=== PATIENT | female | born 1985 | race Caucasian/White ===

== ENCOUNTER 2016-08-12 19:28 | Emergency (ER) | payer BC ==
--- NOTE | 2016-08-12 20:23 | ED.PDOC ---
History of Present Illness - General Chief Complaint: Abdominal Pain Stated Complaint: right abd pain radiates to back/chest, diarrhea Time Seen by Provider: 08/12/16 19:33 Information Source: patient, RN notes reviewed, Vital Signs reviewed Exam Limitations: no limitations - History of Present Illness Initial Comments: Patient started with RUQ pain yesterday that has worsened today. + nausea & diarrhea. Pain radiated to her back and chest. + chills. Pain is both crampy and burning. She has had similar episodes in the past but last evaluated while 5 years ago. GB sonogram was negative at that time. Abdominal Pain Onset Location: RUQ, epigastric Pain Radiation: chest, back Quality: moderate, burning, cramping Timing/Duration: 24 hours Improving Factors: nothing Worsening Factors: nothing Associated Symptoms: back pain - R mid back, chest pain, diarrhea, fever/chills , nausea/vomiting Review of Systems - Review of Systems Constitutional: States: chills Respiratory: States: no symptoms reported Cardiology: States: chest pain Gastrointestinal/Abdominal: States: see HPI, abdominal pain, diarrhea, nausea Genitourinary: States: no symptoms reported Musculoskeletal: States: back pain Skin: States: no symptoms reported Neurological: States: no symptoms reported. Denies: headache Past Medical History (General) - Patient Medical History Hx Seizures: No Hx Stroke: No Hx Dementia: No Hx Asthma: No Hx of COPD: No Hx Cardiac Disorders: No Hx Congestive Heart Failure: No Hx Pacemaker: No Hx Hypertension: No Hx Thyroid Disease: No Hx Diabetes: No Hx Gastroesophageal Reflux: No Hx Renal Disease: No Hx Cancer: No Hx of HIV: No Hx Hepatitis C: No Hx MRSA: No - Vaccination History Hx Tetanus, Diphtheria Vaccination: No Hx Influenza Vaccination: Yes Hx Pneumococcal Vaccination: No Immunizations Up to Date: No - Social History Hx Tobacco Use: No Hx Chewing Tobacco Use: No Hx Alcohol Use: No Hx Substance Use: No Hx Substance Use Treatment: No Hx Depression: No Feels Threatened In Home Enviroment: No Feels Threatened In a Relationship: No Hx Physical Abuse: No Hx Emotional Abuse: No Hx Suspected Abuse: No - Female History Patient is a Female of Child Bearing Age (10 -59 yrs old): Yes Hx Last Menstrual Period: 08/05/16 Patient : No Family Medical History - Family History Mother Living Status: Still Living Hx Family Hypertension: Yes Hx Family Cancer: Yes Hx Family;Other: kidney disease, thyroid disease Physical Exam - Physical Exam General Appearance: Alert, Comfortable, No apparent distress, Obese, Well Developed, Well Groomed, Well Hydrated, Well Nourished Neck: non-tender, full range of motion, supple, normal inspection Respiratory: chest non-tender, lungs clear, normal breath sounds, no respiratory distress, no accessory muscle use Cardiovascular/Chest: regular rate, rhythm, no edema, no gallop, no JVD, no murmur Gastrointestinal/Abdominal: normal bowel sounds, soft, tenderness - RUQ and epigastric with + Serrano's sign Back Exam: CVA tenderness (R) Extremity: normal range of motion, normal inspection Neurologic: alert, normal mood/affect, oriented x 3 Skin Exam: normal color, warm/dry Progress - Progress Progress: 08/12/16 21:04 Labs are normal. Exam is suspect for gallbladder issue. Unfortunately 08/12/16 21:28 Unfortunately, unable to get GB sonogram tonight. Will order as outpatient and get done tomorrow morning. Discussed with patient and [employer] who are both agreeable with plan. Departure - Departure Clinical Impression: Abdominal pain, RUQ (right upper quadrant) Time of Disposition: 21:30 Disposition: Discharge to Home or Self Care Condition: Good Departure Forms: ED Discharge - Pt. Copy, Patient Portal Self Enrollment Instructions: DI for Abdominal Pain-Adult Diet: full liquid diet - Until after sonogram tomorrow Activity: increase activity as tolerated
[2016-08-12] MEDS: HYDROmorphone HCL INJ 2 MG/ML VIAL IV ONE (20:48)
[2016-08-12] MEDS: ONDANSETRON INJ 4 MG/2 ML VIAL IV ONE (20:49)
[2016-08-12 22:03] VITALS: BP 132/72; TEMP 99; O2SAT 97
--- NOTE | 2016-08-13 09:39 | US ---
EXAM DESCRIPTION: Gall Bladder ultrasound. CLINICAL HISTORY: RUQ pain COMPARISON: None. TECHNIQUE: Routine sonographic images of the right upper quadrant of the abdomen were acquired and submitted for review. FINDINGS: Liver: Normal in size and echogenicity. Bile ducts- Intrahepatic and extrahepatic bile ducts not dilated with common bile duct measuring 4 mm. Gallbladder: The gallbladder contains numerous shadowing calculi measuring up to 18 mm. A positive sonographic Serrano sign is reported. The gallbladder wall measures 2 mm. Pancreas: Visualized portions are unremarkable. Ascites: none IMPRESSION: 1. Cholelithiasis with positive sonographic Serrano sign. The sonographic findings are consistent with acute cholecystitis. Electronically signed by: Nasir Herr MD 08/13/2016 9:38 AM CDT
== END 2016-08-12 21:45 | disposition home or self-care (01) ==
LOC: ER 19:28
DX: R10.11 Right upper quadrant pain (principal)
CPT/HCPCS: 36415; 80053; 82150; 83690; 85025; J1170; J2405

== ENCOUNTER 2020-04-24 18:12 | Observation (INO) | payer BC, OTHER ==
--- NOTE | 2020-04-24 19:11 | ED.PDOC ---
History of Present Illness - General Chief Complaint: Abdominal Pain Stated Complaint: abdominal pain Time Seen by Provider: 04/24/20 19:08 Information Source: patient Exam Limitations: no limitations - History of Present Illness Initial Comments: ONSET OF UPPER MILD ABD PAIN AT 0700 WHEN SHE AWOKE THIS MORNING, PROGRESSIVELY MORE PAIN THRU THE DAY, THIS AFTERNOON AND EVENING ASSOCIATED WITH NAUSEA AND VOMITING, SOME CHILLS NOTED. NO RECENT ILLNESS OR KNOW EXPOSURE TO ANYONE SICK. DENIES OTHER HEALTH PROBLEMS, S/P CHOLECYSTECTOMY Abdominal Pain Onset Location: epigastric Pain Radiation: back Quality: severe Worsening Factors: nothing Associated Symptoms: nausea/vomiting Review of Systems - Review of Systems Constitutional: States: chills, diaphoresis. Denies: fever, weakness EENTM: States: no symptoms reported Respiratory: States: no symptoms reported Cardiology: States: no symptoms reported Gastrointestinal/Abdominal: States: see HPI Genitourinary: States: no symptoms reported. Denies: dysuria, frequency, hematuria Musculoskeletal: States: no symptoms reported Skin: States: no symptoms reported Past Medical History (General) - Patient Medical History Hx Seizures: No Hx Stroke: No Hx Dementia: No Hx Asthma: No Hx of COPD: No Hx Cardiac Disorders: No Hx Congestive Heart Failure: No Hx Pacemaker: No Hx Hypertension: No Hx Thyroid Disease: No Hx Diabetes: No Hx Gastroesophageal Reflux: No Hx Renal Disease: No Hx Cancer: No Hx of HIV: No Hx Hepatitis C: No Hx MRSA: No Surgical History: cholecystectomy - Vaccination History Hx Tetanus, Diphtheria Vaccination: No Hx Influenza Vaccination: Yes Hx Pneumococcal Vaccination: No - Social History Hx Tobacco Use: No Hx Chewing Tobacco Use: No Hx Alcohol Use: No Hx Substance Use: No Hx Substance Use Treatment: No Hx Depression: No Hx Physical Abuse: No Hx Emotional Abuse: No Hx Suspected Abuse: No - Activities of Daily Living Hospice Agency (if applicable):: None - Female History Patient is a Female of Child Bearing Age (10 -59 yrs old): No Hx Last Menstrual Period: 08/05/16 Patient : No Family Medical History - Family History Mother Living Status: Still Living Hx Family Hypertension: Yes Hx Family Cancer: Yes Hx Family;Other: kidney disease, thyroid disease Father Living Status: Still Living Hx Family;Other: kidney disease Physical Exam - Physical Exam General Appearance: Alert, Obese, Well Developed, Well Groomed, Well Hydrated, Well Nourished Eyes, Ears, Nose, Throat Exam: PERRL/EOMI, normal ENT inspection Neck: non-tender, full range of motion, supple, normal inspection Respiratory: chest non-tender, lungs clear, normal breath sounds, no respiratory distress, no accessory muscle use Cardiovascular/Chest: normal peripheral pulses, regular rate, rhythm, no edema, no gallop Peripheral Pulses: No deficit, 2+ Gastrointestinal/Abdominal: normal bowel sounds, non tender, soft, no organomegaly, no pulsatile mass Neurologic: alert, normal mood/affect, oriented x 3 Skin Exam: normal color, warm/dry Progress - Progress Progress: DISCUSSED WITH RADIOLOGIST AND DR GHAZAL MERCHANT TO EXPLORE ADDING TO SURGERY SCHEDULE AND ADMIT THRU HOSPITALIST IF POSSIBLE. Departure - Departure Clinical Impression: Appendicitis Time of Disposition: 23:55 Disposition: Admit Patient Home Medications: Ambulatory Orders DULoxetine HCL [Cymbalta] 30 mg PO BEDTIME 04/24/20 Norethindrone Acetate-Ethinyl [Lo Loestrin Fe] 1 tab PO BEDTIME 04/24/20
--- NOTE | 2020-04-24 20:39 | RAD ---
EXAM DESCRIPTION: Chest,2 Views CLINICAL HISTORY:34 years Female, ABD PAIN Comparison: Chest radiograph dated March 22, 2013 FINDINGS: No focal lung consolidation. No pleural effusion. No pneumothorax. Cardiomediastinal silhouette is within normal limits. No acute osseous abnormality. IMPRESSION: No acute cardiopulmonary disease. Electronically signed by: Salbador Ramirez DO 04/24/2020 8:37 PM [facility]
--- NOTE | 2020-04-24 20:42 | CT ---
PROCEDURE: CT Abdomen and Pelvis With Intravenous Contrast CLINICAL INDICATION: The patient is 34 years old and is Female; ABD PAIN TECHNIQUE: Axial computed tomography images of the abdomen and pelvis with intravenous contrast. Sagittal and coronal reformatted images were created and reviewed. This CT exam was performed using one or more of the following dose reduction techniques: automated exposure control, adjustment of the mA and/or kV according to patient size, and/or use of iterative reconstruction technique. DLP: 1298 mGy*cm COMPARISON: None. FINDINGS: LUNG BASES: Lung bases are clear. HEART: Visualized heart is normal. ABDOMEN: LIVER: Unremarkable. No mass. GALLBLADDER AND BILE DUCTS: Prior cholecystectomy. No ductal dilation. PANCREAS: Unremarkable. No mass. No ductal dilation. SPLEEN: Unremarkable. No splenomegaly. ADRENALS: Unremarkable. No mass. KIDNEYS AND URETERS: Asymmetric prominence of the right ureter. No radiopaque stone, urothelial thickening or periureteral stranding. STOMACH AND BOWEL: Unremarkable. No obstruction. No mucosal thickening. PELVIS: APPENDIX: Diffuse thickening of the appendix measuring up to 1.2 cm with periappendiceal stranding. BLADDER: Unremarkable. No mass. REPRODUCTIVE: 3.2 cm right ovarian cyst. ABDOMEN and PELVIS: INTRAPERITONEAL SPACE: Unremarkable. No free air. No significant fluid collection. BONES/JOINTS: L5-S1 degenerative changes. No acute fracture. No dislocation. SOFT TISSUES: Unremarkable. VASCULATURE: Unremarkable. No abdominal aortic aneurysm. LYMPH NODES: Unremarkable. No enlarged lymph nodes. IMPRESSION: 1. Acute appendicitis. No perforation or abscess formation. 2. 3.2 cm right ovarian cyst. No follow-up imaging is recommended. Reference: US recommendations based on Radiology 2010 Dec;256(3):943-54; CT/MR recommendations based on J Am Miguel Radiol 2013;10:675-681. 3. Asymmetric prominence of the right ureter. No radiopaque stone, urothelial thickening or periureteral stranding. Electronically signed by: Salbador Ramirez DO 04/24/2020 8:41 PM [facility]
[2020-04-24] MEDS ORDERED: PIPERACILLIN/TAZOBACTAM 4.5 GM in SODIUM CHLORIDE 0.9% 100ML 100 ML IVPB ONE (20:51)
[2020-04-24] MEDS ORDERED: PIPERACILLIN/TAZOBACTAM 2.25 GM VIAL IVPB ONE (21:04)
[2020-04-24] MEDS ORDERED: PIPERACILLIN/TAZOBACTAM 3.375 GM VIAL IVPB ONE (21:04)
[2020-04-24] MEDS ORDERED: SODIUM CHL 0.9% 100ML MINI-BAG 100 ML IVPB ONE (21:06)
--- NOTE | 2020-04-24 21:54 | HP ---
CHIEF COMPLAINT: Fever and abdominal pain. HISTORY OF PRESENT ILLNESS: The patient is a 34-year-old female who was in her normal state of health until 7 o'clock yesterday morning. She developed pain worsening during the day. She had nausea, vomiting and had chills, but no major fever. There was no one else in her immediate family with any like symptoms. PAST MEDICAL HISTORY: 1. Childbirth x3, all by vaginal delivery. PAST SURGICAL HISTORY: 1. Cholecystectomy, complicated by bleeding. MEDICATIONS: 1. Cymbalta. 2. Oral control agents. ALLERGIES: NO KNOWN DRUG ALLERGIES. FAMILY HISTORY: Positive for hypertension, cholecystectomies in the past. Her mother has carcinoma of the thyroid. SOCIAL HISTORY: The patient is the mother of 3. She essentially does not smoke or drink and has not used street drugs. REVIEW OF SYSTEMS: CONSTITUTIONAL: Denies weight loss, fever or chills prior to this episode. RESPIRATORY: Denies upper respiratory symptoms, shortness of breath. CARDIOVASCULAR: Denies chest pain. GASTROINTESTINAL: Denies change in her bowel habits, melanotic stools or blood per rectum. There was no hematemesis. PHYSICAL EXAMINATION: GENERAL: The patient is awake, alert, cooperative, in mild distress. VITAL SIGNS: The patient is currently afebrile, normotensive. HEENT: Sclerae nonicteric. Mucous membranes moist. NECK: Without adenopathy. CHEST: Equal breath sounds bilaterally. HEART: Regular rate and rhythm. ABDOMEN: Soft. There is diffuse tenderness, but tenderness to deep palpation in the right lower quadrant. PELVIC/RECTAL: Deferred. EXTREMITIES: Without cyanosis, clubbing or edema. LABORATORY: White count last night 11.3. It is 8.4 this morning. Hemoglobin has dropped from 14.6 to 12.8. She has 67% neutrophils compared with 88% last night. Platelet count 277,000. Chemistries reveal potassium 3.3, down from 3.7. Creatinine 0.71. Liver studies were within normal limits last night. She has a serum HCG which was negative. Urine last night showed specific gravity of 1.015 with 40 ketones, negative leukocyte esterase, 1+ bacteria. RADIOLOGY: CT scan revealed inflammation involving the appendix with some dilation of the appendix. No free fluid or free air was identified. There was mild distention of the right ureter without stone noted and a right ovarian cyst which was not though to be a problem. IMPRESSION: 1. Abdominal pain. 2. Leukocytosis. 3. Fever. 4. CT scan consistent with appendicitis. PLAN: She will be continued on her Levaquin and Flagyl and taken to the Operating Room when Anesthesia becomes available. Risks, benefits and alternatives to appendectomy were discussed and accepted by the patient. #[id number] [facility]
[2020-04-24] MEDS ORDERED: LACTATED RINGERS 1,000 ML IVS PRN (22:38)
[2020-04-24] MEDS ORDERED: MORPHINE SULFATE INJ 10 MG/ML VIAL IV PRN (22:41)
[2020-04-24] MEDS ORDERED: levoFLOXacin 750MG IV 750 MG in PREMIX BAG 1 BAG IVPB SCH ×2 (22:49→23:00)
[2020-04-24] MEDS ORDERED: metroNIDAZOLE IV PREMIX 500MG 100 ML IVPB ONE (22:55)
[2020-04-24] MEDS: metroNIDAZOLE IV PREMIX 500MG 500 MG in PREMIX BAG 1 BAG IVPB SCH (23:01)
[2020-04-25] MEDS: levoFLOXacin 750MG IV 750 MG in PREMIX BAG 1 BAG IVPB SCH (00:06)
[2020-04-25] MEDS ORDERED: ACETAMINOPHEN 325 MG TAB PO ONE (00:12)
[2020-04-25] MEDS ORDERED: metroNIDAZOLE IV PREMIX 500MG 100 ML IVPB ONE (06:10)
[2020-04-25] MEDS: metroNIDAZOLE IV PREMIX 500MG 500 MG in PREMIX BAG 1 BAG IVPB SCH (06:30)
[2020-04-25] MEDS ORDERED: SCOPOLAMINE PATCH 1.5MG 1 EA TD ONE (09:50)
[2020-04-25] MEDS ORDERED: PROPOFOL 200 MG/20 ML VIAL IV ONE (10:00)
[2020-04-25] MEDS ORDERED: LIDOCAINE 1% 10 ML VIAL INJ ONE (10:00)
[2020-04-25] MEDS ORDERED: DEXAMETHASONE INJ 10 MG/ML VIAL IV ONE (10:00)
[2020-04-25] MEDS ORDERED: MAGNESIUM SULFATE INJ 1 GM/2 ML VIAL IVPB ONE (10:00)
[2020-04-25] MEDS ORDERED: METOCLOPRAMIDE HCL INJ 10 MG/2 ML VIAL IV ONE (10:00)
[2020-04-25] MEDS ORDERED: BUPIVACAINE 0.25% W/EPI 50 ML VIAL INJ ONE ×2 (10:11→10:43)
[2020-04-25] MEDS ORDERED: DEXMEDETOMIDINE HCL 200 MCG/2 ML INJ IV ONE (10:34)
[2020-04-25] MEDS ORDERED: SUGAMMADEX SODIUM 200 MG/2 ML VIAL IV ONE (10:34)
[2020-04-25] MEDS ORDERED: MIDAZOLAM INJ 2 MG/2 ML VIAL ONE (10:34)
[2020-04-25] MEDS ORDERED: fentaNYL CITRATE INJ 50 MCG/ML 2 ML AMP ONE (10:35)
[2020-04-25] MEDS ORDERED: ROCURONIUM BROMIDE 10 MG/ML VIAL ONE (10:35)
[2020-04-25] MEDS ORDERED: ELECTROLYTE-A 1,000 ML IVS ONE ×2 (10:45→11:12)
[2020-04-25] MEDS ORDERED: FAMOTIDINE INJ 10 MG/ML VIAL IV ONE (10:58)
[2020-04-25] MEDS: metroNIDAZOLE 500 MG TAB PO SCH ×2 (12:00→19:35)
[2020-04-25] MEDS ORDERED: ONDANSETRON INJ 4 MG/2 ML VIAL ONE (12:07)
[2020-04-25] MEDS ORDERED: ONDANSETRON INJ 4 MG/2 ML VIAL IV PRN (12:07)
[2020-04-25] MEDS ORDERED: ONDANSETRON INJ 4 MG/2 ML VIAL IV ONE (12:09)
[2020-04-25] MEDS ORDERED: PROMETHAZINE HCL INJ 25 MG/ML VIAL ONE (12:40)
[2020-04-25] MEDS ORDERED: HYDROmorphone HCL INJ 2 MG/ML VIAL ONE (12:40)
[2020-04-25] MEDS ORDERED: HYDROmorphone HCL INJ 2 MG/ML VIAL IV ONE (12:42)
[2020-04-25] MEDS ORDERED: PROMETHAZINE HCL INJ 25 MG/ML VIAL IVPB ONE (12:45)
--- NOTE | 2020-04-25 13:26 | OP ---
DATE OF PROCEDURE: 04/25/20 PREOPERATIVE DIAGNOSIS: 1. Right sided abdominal pain. 2. Abnormal CT scan consistent with appendicitis. POSTOPERATIVE DIAGNOSIS: 1. Right sided abdominal pain. 2. Abnormal CT scan consistent with appendicitis. 3. Acute appendicitis. PROCEDURE: 1. Laparoscopy, appendectomy. SURGEON: Saúl Slaughter MD. HISTORICAL RECORDS ADMINISTRATOR: None. ANESTHESIA: General endotracheal anesthesia and local infiltration of 0.25% Marcaine with epinephrine. INDICATION: The patient is a 34-year-old female in her normal state of health who developed abdominal pain yesterday. The pain worsened. She had nausea, vomiting and chills, but no measured fever. She came to the Emergency Room where she was found to have a mild leukocytosis and dehydration. She underwent a CT scan which revealed an inflamed appendix and ovarian cyst. She was admitted last night and started on IV antibiotics and rehydrated. This morning, she is brought to the Surgical Suite after the risks, benefits and alternatives to appendectomy were discussed and accepted. FINDINGS: The appendix was thickened, edematous and injected. There was no obvious free fluid or perforation. No other pathology was identified other than the ovarian cyst. PROCEDURE: After adequate general anesthesia was obtained, the patient was prepped and draped in the usual sterile manner. A surgical time-out was taken. The infraumbilical area was infiltrated with local anesthesia. A curvilinear incision was fashioned using a sharp knife and dissection was carried down through skin to subcutaneous tissue to the midline fascia. Traction sutures were placed on either side of the midline. A small incision was made in the midline fascia. The peritoneum was opened bluntly. Zenia trocar was introduced under direct vision and fixed in place with a 20 mL balloon. CO2 was then insufflated until a pressure of 12 mmHg was reached and the abdomen was tympanitic in all four quadrants. When this was done, the laparoscope was introduced and the abdomen was inspected with the previously noted findings. The patient was then placed in the Trendelenburg position and turned to the patient's left side down. A suprapubic port was placed under direct vision with no difficulty. The right lower quadrant was explored and the appendix was identified. The left lower quadrant port was placed under direct vision in the usual manner. When this was done, the appendix was identified and elevated. The mesoappendix at the base was transected using blunt dissection and then two firings of the Endo-EDITH were used, first to divide the base of the appendix and then the mesoappendix. There was no significant bleeding identified and a clot over the appendiceal stump. At this point, the patient was placed flat. The left lower quadrant port was removed after the appendix had been removed from the left lower quadrant port after being placed in an EndoCatch bag. At this point, the port was closed with 2 simple sutures of 0 Vicryl placed using the EndoClose device. This was tightened and tied and adequate hemostasis was noted there. The suprapubic port was removed. At this point, the CO2, the laparoscope and then the infraumbilical port were removed. The infraumbilical port site fascia was approximated with a single [id number] suture of 0 Vicryl. Subcutaneous tissue was irrigated with saline. Skin edges were approximated loosely with concepcion. Sterile dressings were applied. The patient was awakened and taken to the Recovery Room in good and stable condition. Estimated blood loss was less than 25 mL. All sponge, needle and instrument counts were correct. [facility][id number] [facility]
[2020-04-25] MEDS: ACETAMINOPHEN W/COD #3 TAB 1 EA TAB PO PRN (21:28)
[2020-04-26] MEDS: levoFLOXacin 750MG IV 750 MG in PREMIX BAG 1 BAG IVPB SCH (00:01)
[2020-04-26] MEDS: metroNIDAZOLE 500 MG TAB PO SCH (04:01)
[2020-04-26] MEDS: ACETAMINOPHEN W/COD #3 TAB 1 EA TAB PO PRN (06:22)
[2020-04-26 10:11] VITALS: BP 130/66; TEMP 98; O2SAT 97
--- NOTE | 2020-04-26 14:24 | DS ---
PROCEDURE PERFORMED: 1. The patient underwent laparoscopic appendectomy on 04/25/20. HISTORY OF PRESENT ILLNESS: The patient is a 34-year-old female who was in her normal state of health until 7 o'clock yesterday morning. She developed pain worsening during the day. She had nausea, vomiting and had chills, but no major fever. There was no one else in her immediate family with any like symptoms. LABORATORY: The patient's white blood cell count was 8.4 on the date of surgery with a normal differential with neutrophils 67.9. Hemoglobin 12.8. The pathology report is pending at this time. HOSPITAL COURSE: The patient was admitted late in the evening of 04/24/20 through the Emergency Room. She was hydrated and begun on IV antibiotics. No surgical crew was available at that time. The morning of 04/25/20, she underwent laparoscopic appendectomy without problem. She began to tolerate liquids in the evening, but with the problems she has had postoperative in the past, asked to stay overnight. By the next morning, she was tolerating liquids, she was belching. She had no passed flatus, but felt okay. Her abdomen was soft, mildly tender. The incision sites revealed no erythema or drainage. At that time, she was discharged home. CONDITION ON DISCHARGE: Good. PROGNOSIS: Excellent pending the pathology report. PLAN: She is to followup in my office in 8 days. She is to call for an appointment. She was discharged on a regular diet and told to push fluids. She is told she can ambulate, but do no lifting or exercise. She is told she can shower, but not tub bath. Her was given phone numbers for both my office and my nurse, Jennifer, and instructed to call if she has questions or problems. #[id number] [facility]
== END 2020-04-26 10:45 | disposition home or self-care (01) ==
LOC: ER 18:12 → MS 21:52
PROVIDERS: ADMIT Nurse Practitioner Family; ATTEND Nurse Practitioner Family
DX: K35.890 Other acute appendicitis without perforation or gangrene (principal); R11.2 Nausea with vomiting, unspecified; N83.201 Unspecified ovarian cyst, right side; Z20.822 Contact with and (suspected) exposure to COVID-19; Z79.899 Other long term (current) drug therapy; Z90.49 Acquired absence of other specified parts of digestive tract
CPT/HCPCS: 44970; 00840; 96367 ×2; 96365; 96375; 96376 ×2; J3010; J1170 ×2; J2765; J3490 ×3; J2405 ×2; J2543 ×2; J2550 ×2; J3475; J1100; J2250; J1956 ×2; J7050; J7120; 80048; 80053; 36415 ×2; 81001; 85025 ×2; 84703; 83690; 71046; 74177; 99285; G0378; 87635